=== PATIENT | male | born 1980 | race African-American/Black ===

== ENCOUNTER 2020-09-28 17:14 | Emergency (ER) | payer SELFPAY ==
[~2020-09-28] VITALS: Ht 188 cm; Wt 81.6 kg
[2020-09-28 17:15] VITALS: BP_SYST 113
[2020-09-28 17:53] VITALS: BP_SYST 113
== END 2020-09-28 17:50 ==
LOC: SED 17:14
DX: Z02.89 Encounter for other administrative examinations (principal); Z72.89 Other problems related to lifestyle
CPT/HCPCS: 99283